=== PATIENT | female | born 1975 | race African-American/Black ===

== ENCOUNTER 2023-09-08 12:40 | Outpatient (CLI) | payer OTHER, SELFPAY ==
[2023-09-08 19:52] LABS: Alanine Aminotransferase 16 U/L (6-35); Albumin Level 4.5 g/dL (3.5-5.1); Alkaline Phosphatase 59 U/L (38-126); Amylase 159 U/L (30-110); Anion Gap 4 mmol/L (4-12); Aspartate Amino Transferase 33 U/L (14-36); Bilirubin,Total 0.4 mg/dL (0.2-1.3); Blood Urea Nitrogen 14 mg/dL (7-17); Calcium 9.6 mg/dL (8.4-10.2); Carbon Dioxide 34 mmol/L (22-30); Chloride 99 mmol/L (98-107); Estimated Glomerular Filt Rate > 60; Glucose 93 mg/dL (65-110); Lipase 151 U/L (23-300); Potassium 4.5 mmol/L (3.4-5.0); Sodium 137 mmol/L (137-145)
== END 2023-09-08 12:41 | disposition home or self-care (01) ==
LOC: ANHGOSHLAB 12:41
PROVIDERS: PCP Family Medicine; Visit Provider Nurse Practitioner Family
DX: R10.11 Right upper quadrant pain (principal); I10 Essential (primary) hypertension; R11.10 Vomiting, unspecified; R19.7 Diarrhea, unspecified; Z90.49 Acquired absence of other specified parts of digestive tract
CPT/HCPCS: 36415; 80053; 82150; 83690

== ENCOUNTER 2023-09-20 12:16 | Emergency (ER) | payer OTHER, SELFPAY ==
--- NOTE | 2023-09-20 12:20 | ED.GENADULT ---
HPI - General Adult General Chief complaint: Upper Respiratory Infection Stated complaint: EYE REDNESS/HEADACHE/CONGESTION Time Seen by Provider: 09/20/23 12:21 Source: patient Mode of arrival: ambulatory Limitations: no limitations History of Present Illness HPI narrative: 48-year-old female patient presents to the [facility] with complaints of a headache and right eye pain. Patient states the right eye pain and headache started to get other yesterday morning when she woke up. Patient states she had a little bit of dry discharge to the right eye upon waking up yesterday. Patient states she does not have history of any type of migraines. Patient states she has had some congestion but states she does have chronic congestion but does feel like maybe the congestion is a little worse. Patient denies any trauma to the eye that she is aware of. Patient does wear glasses, Denies wearing contacts. Patient denies vision changes. Patient denies weakness on 1 side of the body or the other. Patient does have sensitivity to the light currently. Related Data Home Medications Medication Instructions Recorded Confirmed cetirizine 10 mg tablet 10 mg PO DAILY 04/02/23 09/20/23 clotrimazole-betamethasone 1 1 applic topical BID PRN Itching 04/02/23 09/20/23 %-0.05 % topical cream ferrous sulfate 27 mg iron tablet 27 mg PO DAILY 04/02/23 09/20/23 lactobacillus combination no.9 4 4,000 mmu cells PO DAILY 04/02/23 09/20/23 billion cell capsule (Adult 50 Plus Probiotic) metformin 500 mg tablet 500 mg PO TID 04/02/23 09/20/23 omeprazole 20 mg capsule,delayed 20 mg PO DAILY 04/02/23 09/20/23 release Allergies Allergy/AdvReac Type Severity Reaction Status Date / Time exenatide [From Byetta] Allergy Mild Unknown Verified 09/12/23 12:54 Sulfa (Sulfonamide Allergy Mild Unknown Verified 09/12/23 12:54 Antibiotics) sulfamethoxazole Allergy Mild Unknown Verified 09/12/23 12:54 [From Bactrim] trimethoprim [From Bactrim] Allergy Mild Unknown Verified 09/12/23 12:54 semaglutide [From Ozempic] Allergy Other Verified 09/20/23 12:23 Review of Systems Review of Systems: CONSTITUTIONAL: Denies fever, chills, or sweats. EYES: Denies visual changes, Positive right eye redness and pain, positive discharge to right eye yesterday. ENT: Denies rhinorrhea, congestion, sore throat, or otalgia. CARDIOVASCULAR: Denies chest pain, palpitations, or edema. RESPIRATORY: Denies cough or dyspnea. GASTROINTESTINAL: Denies abdominal pain, nausea, vomiting, or diarrhea. GENITOURINARY: Denies dysuria or hematuria. SKIN: Denies rash or itching. MUSCULOSKELETAL: Denies back pain, joint pain, or myalgia. NEUROLOGIC: positive headache, denies numbness, or weakness. PSYCHIATRIC: Denies anxiety or depression. [facility] Past Medical History Medical History Abdominal pain, vomiting, and diarrhea Absence of gallbladder ADD (attention deficit disorder) Anxiety with depression Chronic low back pain Chronic neck pain Constipation Delayed gastric transit Diabetic neuropathy Dyslipidemia Elevated platelet count Environmental allergies Essential (primary) hypertension Fibromyalgia GERD without esophagitis History of colon polyps Pelvic pain RLS (restless legs syndrome) RUQ pain Type 2 diabetes mellitus without complications Vitamin D deficiency Surgical History Surgical History History of carpal tunnel surgery of right wrist (~2017) History of cholecystectomy (~2011) History of foot surgery Right reconstructive surgery - 2011 exploratory right foot and ankle surgery - 2012 History of foot surgery Left reconstructive foot surgery for flat feet - 2017, 2018, 2019, 2020 History of hysterectomy (~2018) History of surgical removal of ganglion cyst (~2013) left wrist Hx of local excision of skin lesion (~2015) right wrist [place]
[2023-09-20 12:28] VITALS: BP 122/73; PULSE 64; RESP 16; TEMP 35.9; O2SAT 99
== END 2023-09-20 13:03 | disposition home or self-care (01) ==
PROVIDERS: Emergency Provider Nurse Practitioner Family; PCP Family Medicine
DX: S05.01XA Injury of conjunctiva and corneal abrasion without foreign body, right eye, initial encounter (principal); X58.XXXA Exposure to other specified factors, initial encounter; E78.5 Hyperlipidemia, unspecified; I10 Essential (primary) hypertension; M79.7 Fibromyalgia; K21.9 Gastro-esophageal reflux disease without esophagitis; G25.81 Restless legs syndrome; E11.40 Type 2 diabetes mellitus with diabetic neuropathy, unspecified; Z79.84 Long term (current) use of oral hypoglycemic drugs; F98.8 Other specified behavioral and emotional disorders with onset usually occurring in childhood and adolescence; F41.8 Other specified anxiety disorders; Z79.82 Long term (current) use of aspirin
CPT/HCPCS: 99213; A9270; G0463

== ENCOUNTER 2023-09-24 08:22 | Day surgery (SDC) | payer OTHER, SELFPAY ==
[2023-09-05 13:37] VITALS: BMI 37.0
--- NOTE | 2023-09-24 09:53 | WPDANESEPPF ---
Anes - Initial Pre Proc Eval Procedure: Operation Date: 09/24/23 11:00 Proposed Procedures p Diagnostic Colonoscopy - Temo Robert MD Date/Time: 09/24/23 09:53 Surgeon: Temo Robert MD Pre Op Diagnosis: History of Polyps Patient Data Age: 48 Gender: F Height: 1.56 m Weight: 86.3 kg Allergies Allergy/AdvReac Type Severity Reaction Status Date / Time exenatide [From Byetta] Allergy Mild Unknown Verified 09/12/23 12:54 Sulfa (Sulfonamide Allergy Mild Unknown Verified 09/12/23 12:54 Antibiotics) sulfamethoxazole Allergy Mild Unknown Verified 09/12/23 12:54 [From Bactrim] trimethoprim [From Bactrim] Allergy Mild Unknown Verified 09/12/23 12:54 semaglutide [From Ozempic] Allergy Other Verified 09/20/23 12:23 Home Medications Medication Instructions Recorded Confirmed Type cetirizine 10 mg tablet 10 mg PO DAILY 04/02/23 09/20/23 History clotrimazole-betamethasone 1 1 applic topical BID PRN Itching 04/02/23 09/20/23 History %-0.05 % topical cream ferrous sulfate 27 mg iron tablet 27 mg PO DAILY 04/02/23 09/20/23 History lactobacillus combination no.9 4 4,000 mmu cells PO DAILY 04/02/23 09/20/23 History billion cell capsule (Adult 50 Plus Probiotic) metformin 500 mg tablet 500 mg PO TID 04/02/23 09/20/23 History omeprazole 20 mg capsule,delayed 20 mg PO DAILY 04/02/23 09/20/23 History release gabapentin 300 mg capsule 300 mg PO QID #360 caps 05/01/23 09/20/23 Rx lisinopril 20 mg tablet 20 mg PO DAILY #90 tabs 06/05/23 09/20/23 Rx metoprolol tartrate 25 mg tablet 25 mg PO BID #180 tabs 08/04/23 09/20/23 Rx aspirin 81 mg chewable tablet 1 tablet PO DAILY #90 tabs 08/07/23 09/20/23 Rx meloxicam 7.5 mg tablet 7.5 mg PO DAILY #90 tabs 08/07/23 09/20/23 Rx nystatin 100,000 unit/gram topical 1 applic topical BID #60 grams 08/07/23 09/20/23 Rx powder sodium,potassium,mag sulfates 17.5 See Rx Instructions PO .COMPLEX 09/05/23 09/20/23 Rx gram-3.13 gram-1.6 gram oral soln #354 mL (Suprep Bowel Prep Kit) escitalopram oxalate 10 mg tablet 10 mg PO DAILY #30 tabs 09/08/23 09/20/23 Rx (Lexapro) fluticasone propionate 50 2 spray intranasal DAILY #16 grams 09/08/23 09/20/23 Rx mcg/actuation nasal spray,suspension lisdexamfetamine 20 mg capsule 20 mg PO QAM #14 caps 09/08/23 09/20/23 Rx (Vyvanse) atorvastatin 20 mg tablet 20 mg PO QHS #90 tabs 09/09/23 09/20/23 Rx ergocalciferol (vitamin D2) 1,250 1,250 mcg PO WEEKLY #12 caps 09/09/23 09/20/23 Rx mcg (50,000 unit) capsule erythromycin 5 mg/gram (0.5 %) eye 0.5 inch EACH EYE QID 5 days #3.5 09/20/23 Rx ointment grams Patient hx anesthesia problems: none Family hx anesthesia problems: none Results Review: All pre-operative results and documents have been reviewed as part of the pre-operative evaluation. [facility] Past Medical History Medical History Abdominal pain, vomiting, and diarrhea Absence of gallbladder ADD (attention deficit disorder) Anxiety with depression Chronic low back pain Chronic neck pain Constipation Delayed gastric transit Diabetic neuropathy Dyslipidemia Elevated platelet count Environmental allergies Essential (primary) hypertension Fibromyalgia GERD without esophagitis History of colon polyps Pelvic pain RLS (restless legs syndrome) RUQ pain Type 2 diabetes mellitus without complications Vitamin D deficiency Surgical History Surgical History History of carpal tunnel surgery of right wrist (~2017) History of cholecystectomy (~2011) History of foot surgery Right reconstructive surgery - 2011 exploratory right foot and ankle surgery - 2013 History of foot surgery Left reconstructive foot surgery for flat feet - 2017, 2018, 2019, 2020 History of hysterectomy (~2017) History of surgical removal of ganglion cyst (~2013) left wrist Hx of local excision of skin lesion
[2023-09-24 09:56] VITALS: BP 118/82; PULSE 66; RESP 16; TEMP 36.7; O2SAT 100
[2023-09-24] MEDS: LACTATED RINGERS 1,000 ML 150 ML IV CONT (10:02)
[2023-09-24 10:09] LABS: Glucose Point of Care 102 mg/dl (65-105)
--- NOTE | 2023-09-24 10:39 | PM.HPGS ---
History of Present Illness History of Present Illness Consent: Risks, benefits, and alternatives have been discussed and questions answered. Patient agrees to proceed with procedure. Chief complaint: History of Polyps Narrative: Anisha Melgoza is a 48 year old female presents for colonoscopy. Patient has a history of colon polyps on multiple occasions in the past. Previous colonoscopies were performed elsewhere. Is that her bowel habits are normal. She has vague left lower quadrant discomfort. She has had no bleeding. Her weight remains stable. Family history is non contributory. Review of Systems Review of Systems: All systems reviewed & are unremarkable except as noted in HPI and below PMFSH Past Medical History Medical History (Updated 09/24/23 @ 10:41 by Temo Robert MD) Abdominal pain, vomiting, and diarrhea Absence of gallbladder ADD (attention deficit disorder) Anxiety with depression Chronic low back pain Chronic neck pain Constipation Delayed gastric transit Diabetic neuropathy Dyslipidemia Elevated platelet count Environmental allergies Essential (primary) hypertension Fibromyalgia GERD without esophagitis History of colon polyps Pelvic pain RLS (restless legs syndrome) RUQ pain Type 2 diabetes mellitus without complications Vitamin D deficiency Surgical History Surgical History History of carpal tunnel surgery of right wrist (~2018) History of cholecystectomy (~2011) History of foot surgery Right reconstructive surgery - 2011 exploratory right foot and ankle surgery - 2012 History of foot surgery Left reconstructive foot surgery for flat feet - 2017, 2018, 2019, 2020 History of hysterectomy (~2018) History of surgical removal of ganglion cyst (~2013) left wrist Hx of local excision of skin lesion (~2015) right wrist Social History Social History Smoking status: Never smoker Alcohol intake: current Substance use: never Substance use type: does not use Lack of Transportation: No Lack of Food: Never True Current Housing: I Have Housing Concerned About Future Housing: No Difficulty Paying Gas/Electric Bills: No Difficulty Paying for Meds: No Currently Unemployed: No Education: Associate Degree Difficulty w/ Childcare or Family Care: No Living arrangements: with family Occupation/Education: occupation Gender identity (if verbalized by the patient): Female Sexual Orientation (if Verbalized by the Patient): Straight or Heterosexual Agree to blood products: Yes Meds Home Medications and Allergies Home Medications Medication Instructions Recorded Confirmed Type cetirizine 10 mg tablet 10 mg PO DAILY 04/02/23 09/24/23 History clotrimazole-betamethasone 1 1 applic topical BID PRN Itching 04/02/23 09/24/23 History %-0.05 % topical cream ferrous sulfate 27 mg iron tablet 27 mg PO DAILY 04/02/23 09/24/23 History lactobacillus combination no.9 4 4,000 mmu cells PO DAILY 04/02/23 09/24/23 History billion cell capsule (Adult 50 Plus Probiotic) metformin 500 mg tablet 500 mg PO TID 04/02/23 09/24/23 History omeprazole 20 mg capsule,delayed 20 mg PO DAILY 04/02/23 09/24/23 History release gabapentin 300 mg capsule 300 mg PO QID #360 caps 05/01/23 09/24/23 Rx lisinopril 20 mg tablet 20 mg PO DAILY #90 tabs 06/05/23 09/24/23 Rx metoprolol tartrate 25 mg tablet 25 mg PO BID #180 tabs 08/04/23 09/24/23 Rx aspirin 81 mg chewable tablet 1 tablet PO DAILY #90 tabs 08/07/23 09/24/23 Rx meloxicam 7.5 mg tablet 7.5 mg PO DAILY #90 tabs 08/07/23 09/24/23 Rx nystatin 100,000 unit/gram topical 1 applic topical BID #60 grams 08/07/23 09/24/23 Rx powder escitalopram oxalate 10 mg tablet 10 mg PO DAILY #30 tabs 09/08/23 09/24/23 Rx (Lexapro) fluticasone propionate 50 2 spray intranasal DAILY #16 grams 09/08/23 09/24/23 Rx mcg/actuat
[2023-09-24 11:05] VITALS: BP 117/71; PULSE 65; RESP 14; O2SAT 100
--- NOTE | 2023-09-24 11:12 | WPDANESPN ---
Anes - Prog Note Post-Op Date/Time: 09/24/23 11:12 Cardiovascular status: normal Respiratory status: normal Airway patency: baseline Mental status: baseline Post-Op hydration status: normal Vital Signs: Last Vital Signs Temp 36.7 C 09/24/23 09:56 Pulse 65 09/24/23 11:07 Resp 14 09/24/23 11:07 BP 117/71 09/24/23 11:07 Pulse Ox 100 09/24/23 11:07 O2 Del Method Room Air 09/24/23 11:07 Pain Score (VAS): 0 I/O: Intake & Output 09/23/23 09/24/23 09/24/23 23:59 07:59 15:59 Intake Total 400 Balance 400 09/24/23 10:04 POC Capillary Glucose 102 Patient Feedback: Patient satisfied with anesthetic care.
[2023-09-24 11:15] VITALS: BP 124/74; PULSE 62; RESP 16; O2SAT 100
[2023-09-24 11:25] VITALS: BP 135/81; PULSE 57; RESP 16; O2SAT 100
== END 2023-09-24 11:32 | disposition home or self-care (01) ==
PROVIDERS: PCP Family Medicine; Visit Provider Internal Medicine Gastroenterology
PROC: 0DJD8ZZ Inspection of Lower Intestinal Tract, Via Natural or Artificial Opening Endoscopic (ICD-10-PCS; CPT 45378; principal; 2023-09-24 11:00)
DX: Z86.010 Personal history of colon polyps (principal); K57.30 Diverticulosis of large intestine without perforation or abscess without bleeding; K64.8 Other hemorrhoids
CPT/HCPCS: 45378

== ENCOUNTER 2024-06-29 09:13 | Outpatient (CLI) | payer OTHER, SELFPAY ==
--- OUTSIDE RECORDS SUMMARY | 2024-06-29 09:55 | XMS_ITS | Clinical Summary ---
Author Organization [facility] Address [address] [place] [address] Phone Care Team Providers Care Acute Care Occupational Therapist Name Role Phone Ricardo Cowan MD Primary Care Provider Allergies Active Allergy Reactions Criticality Noted Date Comments Sulfa Antibiotics Hives 09/07/2023 Medications Ozempic, 0.25 or 0.5 MG/DOSE, 2 MG/3ML Solution Pen-injector 0.5 mg by Subcutaneous route once a week. Active DULoxetine (CYMBALTA) [address] Particles Take 60 mg by mouth daily. Active metFORMIN (GLUCOPHAGE) 500 MG Tablet Take 500 mg by mouth 2 times daily (with meals). Active lisinopril (PRINIVIL, ZESTRIL) 20 MG Tablet Take 20 mg by mouth daily. Active gabapentin (NEURONTIN) 600 MG Tablet Take 600 mg by mouth nightly. Active aspirin 81 MG Chewable Tablet Take 81 mg by mouth daily. Active atorvastatin (Lipitor) 20 MG Tablet Take 20 mg by mouth daily. Active Social History Tobacco Use Types Packs/Day Years Used Date Smoking Tobacco: Never Smokeless Tobacco: Never Tobacco Cessation:Counseling Given: Not Answered Alcohol Use Standard Drinks/Week Comments Never 0 (1 standard drink = 0.6 oz pur e alcohol) Comments No Sex and Gender Information Value Date Recorded Sex Assigned at Not on file Legal Sex Female 3:44 PM CDT Gender Identity Not on file Sexual Orientation Not on file Last Filed Vital Signs Vital Sign Reading Time Taken Comments Blood Pressure 139/84 09/07/2023 7:30 PM CDT Pulse 81 09/07/2023 7:34 PM CDT Temperature 36.9 C (98.4 F) 09/07/2023 4:07 PM CDT Respiratory Rate 18 09/07/2023 4:07 PM CDT Oxygen Saturation 100% 09/07/2023 7:34 PM CDT Inhaled Oxygen Concentration - - Weight 86.2 kg (190 lb) 09/07/2023 4:07 PM CDT Height 156.2 cm (5' 1.5 ) 09/07/2023 4:07 PM CDT Body Mass Index 35.32 09/07/2023 4:07 PM CDT Plan of Treatment Health Maintenance Due Date Last Done Comments Hepatitis C Virus (HCV) Screening 1974 Pap Smear 1995 Cervical Cancer Screening (CCS) 2004 HPV/Cotest 2004 Discussion re Starting/Frequency of Mammograms 2014 Mammogram 07/21/2021 07/21/2020 Influenza Immunization (#1) 2023 10/0 07/2018, 12/18/2015 SARS-COV-2 Immunization (3 - season) 2023 06/15/2020, 05/16/2020 Cologuard 2024 Immunochemical Fecal Occult Blood 2024 Pneumococcal Immunization (5 0+ years) (2 of 2 - PCV) 2024 02/10/2019 Zoster Immunization (1 of 2) 2024 Colonoscopy 06/15/2028 06/15/2018 Colorectal Cancer Screening 06/15/2028 Respiratory Syncytial Virus (RSV) Immunization (Adult) (1 - 1-dose 75+ series) 2049 06/15/2018 TdaP Immunization Completed 12/19/2015 Hepatitis B Immunization Completed 017, 12/12/2015, 10/31/2015 Pneumococcal Immunization Combined Discontinued 02/10/2019 Meningococcal Immunization (ACWY) Aged Out No longer eligible based on patient's age to complete this topic Rotavirus Immunization Aged Out No lo nger eligible based on patient's age to complete this topic Insurance [facility] Care Teams Acute Care Occupational Therapist Relationship Specialty Start Date End Date Ricardo Cowan MD [address] [place] [id number] PCP - General Family Medicine 09/07/23
--- OUTSIDE RECORDS SUMMARY | 2024-06-29 09:55 | XMS_ITS | Clinical Summary ---
Author Organization [facility] Address [address] [place] [address] Care Team Providers Care Twine Reeling Machine Operator Name Role Phone Lázaro Maza MD Primary Care Provider Source Comments [facility],non-owned Affiliates and Associated Physician Practices is amultiple site organization consisting of ambulatory clinics and hospital sitesin [place], [place], [place] and [place]. This disclosure is being madepursuant to the Care Everywhere program and may not contain all information available regarding this patient. Last updated 18.[facility] Health Encounters Date Type Department Care Team Description 05/04/2024 3:30 PM AIRCRAFT POWERTRAIN REPAIRER - 05/04/2024 11:59 PM AIRCRAFT POWERTRAIN REPAIRER Hospital Encounter [facility] Imaging Services - [place] [id number] Jose Maxwell, DP Discharge Disposition: Home or Self Care from Last 3 Months Social History Tobacco Use Types Packs/Day Years Used Date Smoking Tobacco: Never Assessed Sex and Gender Information Value Date Recorded Sex Assigned at Not on file Gender Identity Not on file Sexual Orientation Not on file Plan of Treatment Health Maintenance Due Date Last Done Comments COLOGUARD (AGES 45-75) - COLON CA SCREENING 1974 COLON MONITORING 1974 COLONOSCOPY - COLON CA SCREENING 1974 CT COLONOGRAPHY - COLON CA SCREENING 1974 Colorectal Cancer Screening 1974 FIT - COLON CA SCREENING 1974 FLEX SIG - COLON CA SCREENING 1974 LIPID TESTING 1974 PAP SMEAR 1974 HIV SCREENING 1989 HEPATITIS C SCREENING 05/12/1992 DTAP/TDAP/TD VACCINES (1 - Tdap) 1993 HEPATITIS B VACCINE (1 of 3 - 19+ 3-dose series) 1993 COVID-19 VACCINE (3 - 2023- season) 2023 06/15/2020, 05/16/2020 INFLUENZA VACCINE (#1) 2023 01/22/2019, 2015 DEPRESSION SCREENING 04/21/2024 PNEUMOCOCCAL VACCINE 50+ (1 of 1 - PCV) 2024 ZOSTER VACCINE (1 of 2) 2024 MAMMOGRAM 03/15/2026 03/15/2024, 02/20, 07/21/2020, Additional history exists HIB VACCINE Aged Out No longer eligi ble based on patient's age to complete this topic HPV VACCINE Aged Out No longer eligi ble based on patient's age to complete this topic MENINGOCOCCAL (Group B) VACCINE Aged Out No longer eligible based on patient's age to complete this topic MENINGOCOCCAL VACCINE Aged Out No dharmesh aida eligible based on patient's age to complete this topic Procedures Procedure Name Priority Date/Time Associated Diagnosis Comments MRI ANKLE RIGHT WO CONTRAST Routine 05/04/2024 4:25 PM AIRCRAFT POWERTRAIN REPAIRER Posterior tibial tendinitis of right leg from Last 3 Months Results * MRI Ankle Right Wo Contrast (05/04/2024 4:25 PM AIRCRAFT POWERTRAIN REPAIRER) Anatomical Region Laterality Modality Ankle / Foot Magnetic Resonan ce 05/04/2024 5:31 PM AIRCRAFT POWERTRAIN REPAIRER Narrative 05/04/2024 5:38 PM AIRCRAFT POWERTRAIN REPAIRER PROCEDURE: MRI ANKLE RIGHT WO CONTRAST DATE/TIME OF EXAM: 05/04/2024 4:52 PM CLINICAL INFORMATION: None relevant/not provided if blank. Indication: M76.821: Posterior tibial tendinitis, right leg Additional History: Previous surgery. COMPARISON: None. TECHNIQUE: MRI of the right ankle was performed without contrast. FINDINGS: Examination of the bony structures reveals considerable metallic artifact within the mid to posterior calcaneus. Remaining bony structures demonstrate normal marrow signal intensity. No fracture, acute appearing bone marrow edema or bone marrow replacement process is identified. No discrete osteochondral defect is identified at the talar dome. There is a small tibiotalar joint effusion. There is mild chronic thickening of the distal portion of the posterior tibial tendon. Mildly increased fluid posterior tibial tendon sheath. No acute appearing tear is identified. There is loss of definition of the flexor digitorum longus tendon without acute tear or acute edema. No other discrete tendon abnormality identified medially. Peroneal tendons appear intact bilaterally. Achilles tendon is grossly intact as is the plantar fascia. No ligamentous tear is identified. No acute appearing superficial or deep soft tissue edema. No abnormality identified within the sinus tarsi. CONCLUSION: Chronic appearing thickening distal posterior tibial tendon with a small amount of fluid within the tendon sheath. No focal or acute tear identified. Chronic appearing loss of definition flexor digitorum longus tendon, likewise without acute appearing tear or edema. No other tendon tear identified. No discrete ligamentous tear appreciated. Small tibiotalar joint effusion. No fracture, bone marrow edema or osteochondral defect identified. Metallic artifact calcaneus. > Interpreting Provider: Earl Reddy MD on 05/04/2024 5:38 PM Procedure Note Earl Reddy MD - 05/04/2024 PROCEDURE: MRI ANKLE RIGHT WO CONTRAST DATE/TIME OF EXAM: 05/04/2024 4:52 PM CLINICAL INFORMATION: None relevant/not provided if blank. Indication: M76.821: Posterior tibial tendinitis, right leg Additional History: Previous surgery. COMPARISON: None. TECHNIQUE: MRI of the right ankle was performed without contrast. FINDINGS: Examination of the bony structures reveals considerable metallicartifact within the mid to posterior calcaneus. Remaining bony structures demonstrate normal marrow signal intensity. No fracture, acute appearing bone marrow edema or bone marrow replacement process is identified. No discrete osteochondral defect is identified at the talar dome. There brock small tibiotalar joint effusion. There is mild chronic thickening of the distal portion of the posterior tibial tendon. Mildly increased fluid posterior tibial tendon sheath. No acute appearing tear is identified. There is loss of definition of the flexor digitorum longus tendon without acute tear or acute edema. Noother discrete tendon abnormality identified medially. Peroneal tendons appear intact bilaterally. Achilles tendon is grossly intact as is the plantar fascia. No ligamentous tear is identified. No acute appearing superficial ordeep soft tissue edema. No abnormality identified within the sinus tarsi. CONCLUSION: Chronic appearing thickening distal posterior tibial tendon with a small amount of fluid within the tendon sheath. No focal or acute tear identified. Chronic appearing loss of definition flexor digitorum longus tendon, likewise without acute appearing tear or edema. No other tendon tear identified. No discrete ligamentous tearappreciated. Small tibiotalar joint effusion. No fracture, bone marrow edema or osteochondral defect identified. Metallic artifact calcaneus. > Interpreting Provider: Earl Reddy MD on 05/04/2024 5:38 PM Jose Dhillon [place] [facility] MR ORDERABLES from Last 3 Months Care Teams Twine Reeling Machine Operator Relationship Specialty Start Date End Date Lázaro Maza MD [address] [id number] PCP - General 06/12/20
--- OUTSIDE RECORDS SUMMARY | 2024-06-29 09:55 | XMS_ITS | Referral Summary ---
Author Organization [facility] Address [address] [place] [address] Care Team Providers Care Patent Legal Assistant Name Role Phone Lázaro Maza MD Primary Care Provider Source Comments [facility] Affiliates and Associated Physician Practices is amultiple site organization consisting of ambulatory clinics and hospital sitesin [place], [place], [place] and [place]. This disclosure is being madepursuant to the Care Everywhere program and may not contain all information available regarding this patient. Last updated 18.[facility] Encounters Date Type Department Care Team Description 05/04/2024 3:30 PM DIGITAL FORENSIC ANALYST - 05/04/2024 11:59 PM DIGITAL FORENSIC ANALYST Hospital Encounter [facility] Imaging Services - MRI [address] [place] [id number] Jose Maxwell, DP Discharge Disposition: Home or Self Care from Last 3 Months Social History Tobacco Use Types Packs/Day Years Used Date Smoking Tobacco: Never Assessed Sex and Gender Information Value Date Recorded Sex Assigned at Not on file Gender Identity Not on file Sexual Orientation Not on file Plan of Treatment Not on file Procedures Procedure Name Priority Date/Time Associated Diagnosis Comments MRI ANKLE RIGHT WO CONTRAST Routine 05/04/2024 4:25 PM DIGITAL FORENSIC ANALYST Posterior tibial tendinitis of right leg from Last 3 Months Results * MRI Ankle Right Wo Contrast (05/04/2024 4:25 PM DIGITAL FORENSIC ANALYST) Anatomical Region Laterality Modality Ankle / Foot Magnetic Resonan ce 05/04/2024 5:31 PM DIGITAL FORENSIC ANALYST Narrative 05/04/2024 5:38 PM DIGITAL FORENSIC ANALYST PROCEDURE: MRI ANKLE RIGHT WO CONTRAST DATE/TIME [...] Reddy MD on 05/04/2024 5:38 PM Jose M Alissa DPM MR ORDERABLES from Last 3 Months Care Teams Patent Legal Assistant Relationship Specialty Start Date End Date Lázaro Maza MD [address] [id number] PCP - General 06/12/20
--- OUTSIDE RECORDS SUMMARY | 2024-06-29 09:55 | XMS_ITS | Clinical Summary ---
Author Organization [facility] Address [address] [place] [address] Care Team Providers Care Pay Agent Name Role Phone Unavailable Primary Care Provider Unavailabl e Encounters Date Type Department Care Team Description 06/26/2024 External Device Data [facility] ABSTRACTION Provider, Abstract 06/25/2024 External Device Data [facility] Provider, Abstract 06/23/2024 External Device Data [facility] Provider, Abstract 06/09/2024 External Device Data [facility] Provider, Abstract 06/01/2024 External Device Data [facility] Provider, Abstract 05/19/2024 External Device Data [facility] Provider, Abstract 05/13/2024 External Device Data [facility] Provider, Abstract from Last 3 Months Social History Tobacco Use Types Packs/Day Years Used Date Smoking Tobacco: Never Assessed Comments Unknown Sex and Gender Information Value Date Recorded Sex Assigned at Not on file Legal Sex Female 4:55 PM CDT Gender Identity Not on file Sexual Orientation Not on file Plan of Treatment Health Maintenance Due Date Last Done Comments Pre-Diabetes and Diabetes Screening 1974 DTAP/TDAP/TD VACCINES (1 - Tdap) 1993 HEPATITIS B VACCINES (1 of 3 - 19+ 3-dose series) 1993 CERVICAL CANCER SCREENING 2004 COLORECTAL SCREENING 2019 Colorectal Cancer Screening 2019 FIT-DNA Q 3 years 2019 FIT/FOBT Q 1 year 2019 Flex Sig/CT Colonography Q 5 years 2019 INFLUENZA VACCINE (#1) 2023 ZOSTER VACCINE (1 of 2) 2024 BREAST CANCER SCREENING 03/15/2025 03/15/2024 PNEUMOCOCCAL VACCINE 0-49 YEARS Aged Out No longer eligible based on patient's age to complete this topic Procedures Procedure Name Priority Date/Time Associated Diagnosis Comments MAMMO 3D BISHNU SCREEN BILAT W OR WO CAD Routine 03/15/2024 7:38 AM DIGITAL ASSET COORDINATOR Encounter for screening mammogram for malignant neoplasm of breast from Last 3 Months or Most Recently Relevant to Health Maintenance Results * MAMMO 3D BISHNU SCREEN BILAT W OR WO CAD (03/15/2024 7:38 AM DIGITAL ASSET COORDINATOR) Anatomical Region Laterality Modality Breast Bilateral Mammography 03/15/2024 7:38 AM DIGITAL ASSET COORDINATOR Addenda Addendum by Aba Marshall MD on 03/16/2024 7:51 AM DIGITAL ASSET COORDINATOR CC and MLO views are obtained. Impressions 03/15/2024 8:24 AM DIGITAL ASSET COORDINATOR IMPRESSION: NO RADIOGRAPHIC EVIDENCE OF MALIGNANCY. BI-RADS CATEGORY 1-Negative. Narrative 03/15/2024 8:24 AM DIGITAL ASSET COORDINATOR Computer Assisted Detection (CAD) used during interpretation. INDICATION: Screening. Standard views of both breasts are obtained. 3D tomosynthesis was also utilized. Compared to 07/02/22. There has been no change. There is no abnormal mass or grouped microcalcifications present to suggest malignant disease. Breast Density: Scattered areas of fibroglandular density. Procedure Note Aba Marshall MD - 03/15/2024 Computer Assisted Detection (CAD) used during interpretation. INDICATION: Screening. Standard views of both breasts are obtained. 3D tomosynthesis was also utilized. Compared to 07/02/22. There has been no change. There is no abnormal mass or grouped microcalcifications present to suggest malignant disease. Breast Density: Scattered areas of fibroglandular density. IMPRESSION: NO RADIOGRAPHIC EVIDENCE OF MALIGNANCY. BI-RADS CATEGORY 1-Negative. Ricardo Cowan MD MAMMO ORDERABLES Edite d Result - Final from Last 3 Months or Most Recently Relevant to Health Maintenance Insurance [facility] [id number]
--- OUTSIDE RECORDS SUMMARY | 2024-06-29 09:55 | XMS_ITS | Clinical Summary ---
Author Organization [facility] Address [address] [place] [address] Care Team Providers Care Apprentice Name Role Phone Brian Lyle MD Unavailable [phone] Ricardo Cowan MD Primary Care Provider Allergies Active Allergy Reactions Criticality Noted Date Comments Aspirin Fatigue,Stomach upset Low 09/25/2021 Sulfamethoxazole-Trimeth oprim Rash Medium 09/25/2021 Exenatide Ibuprofen Fatigue,Other (See comments),Stomach upset Low 09/25/2021 Levofloxacin Other (See comments) Low 06/15/2018 Yeast infection Sulfanilamide Medications atorvastatin (LIPITOR) 20 mg tablet Take 20 mg by mouth nightly 07/26/[address] (CYMBALTA) 60 mg capsule Take 60 mg by mouth daily 09/08/2020 Active ergocalciferol (VITAMIN D) 50,000 unit capsule Take 50,000 Units by mouth once a week 07/04/2020 Active ferrous sulfate 325 mg (65 mg of elemental iron) tablet Take 325 mg by mouth daily 12/28/2019 Active fluticasone propionate (FLONASE) 50 mcg/actuation nasal spray UES 2 SPRAYS IN EACH NOSTRIL DAILY 08/07/2021 Active gabapentin (NEURONTIN) 600 mg tablet Take 600 mg by mouth nightly at bedtime. 09/18/2021 Active glimepiride (AMARYL) 2 mg tablet Take 2 mg by mouth every 12 (twelve) hours 08/05/2021 Active ipratropium (ATROVENT) 42 mcg (0.06 %) nasal spray USE 2 SPRAYS IN EACH NOSTRIL EVERY 12 HOURS 08/07/2021 Active lisinopril-hydr oCHLOROthiazide (ZESTORETIC) 10-12.5 mg per tablet 08/29/2021 Active metFORMIN (GLUCOPHAGE) 500 mg tablet 08/29/2021 Activ e modafiniL (PROVIGIL) 200 mg tablet Take 200 mg by mouth 2 (two) times a day 08/05/2021 Active polyethylene glycol (Purelax) 17 gram/dose powder Take 17 g by mouth daily as needed 08/19/[address] (PROTONIX) 40 mg EC tablet Take 40 mg by mouth daily 11/17/2018 Active tiZANidine (ZANAFLEX) 2 mg tablet 09/21/2021 Active traMADoL (ULTRAM) 50 mg tablet Take 50 mg by mouth 2 (two) times a day 09/13/2021 Active traZODone (DESYREL) 50 mg tablet Take 50 mg by mouth nightly 08/01/2021 Active aspirin 81 mg chewable tablet CHEW AND SWALLOW 1 TABLET BY MOUTH EVERY DAY 08/13/2021 Active Active Problems No known active problems Surgical History Surgery Date Site/Laterality Comments OTHER SURGICAL HISTORY tubal reversal OTHER SURGICAL HISTORY fibroids removed TUBAL LIGATION Bilateral tubal ligation CHOLECYSTECTOMY Cholecystectomy OTHER SURGICAL HISTORY D&C TUBAL LIGATION HYSTERECTOMY Medical History Medical History Date Comments Hx Other Medical anemic Hypertension Hypertension Rectal pain Chronic constipation Family History Medical History Relation Name Comments Diabetes Father Hypertension Father Prostate cancer Father Arthritis Mother Hypertension Mother Diabetes Paternal Grandfather Diabete s mellitus; Relation Name Status Comments Father Mother Paternal Grandfather Social History Tobacco Use Types Packs/Day Years Used Date Smoking Tobacco: Never Alcohol Use Standard Drinks/Week Comments No 0 (1 standard drink = 0.6 oz pur e alcohol) Personal Safety Answer Date Recorded Have you ever been in or are you currently in a harmful physical or emotional relationship or is someone making you feel afraid or unsafe? 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 Gender Identity Female 04/02/2023 6:30 AM BICYCLE II ASSEMBLER Sexual Orientation Straight 04/02/2023 6: 30 AM BICYCLE II ASSEMBLER Obstetrics History Last Filed Vital Signs Vital Sign Reading Time Taken Comments Blood Pressure 119/75 09/07/2023 12:18 PM CDT Pulse 72 09/07/2023 12:18 PM CDT Temperature 36.6 C (97.9 F) 09/07/2023 12:18 PM CDT Respiratory Rate 16 09/07/2023 12:18 PM CDT Oxygen Saturation 100% 09/07/2023 12:18 PM CDT Inhaled Oxygen Concentration - - Weight 86.2 kg (190 lb) 09/07/2023 12:18 PM CDT Height 156.2 cm (5' 1.5 ) 09/07/2023 12:18 PM CD T Body Mass Index 35.32 09/07/2023 12:18 PM CDT Plan of Treatment Health Maintenance Due Date Last Done Comments Breast Cancer Screening-Mammogram 1974 Colon Cancer Screening-Colonoscopy 1974 Depression Screening 1974 Hepatitis C Screening 1974 Regular Well Visit/Exam 18-64 1992 Pneumococcal vaccine <65 (2 of 2 - PCV) 02/11/2020 02/10/2019 Covid-19 Vaccine (4 - 2023-2 5 season) 2023 03/01/2021, 06/15/2020, 05/16/2020 Influenza Vaccine (#1) 2023 , 02/24/2021, 01/22/2019, Additional history exists Zoster Vaccine (1 of 2) 2024 DTaP/Tdap/Td Vaccine (3 - Td or Tdap) 12/18/2025 12/19/2015, 01/02/2007 Hepatitis B Screening Completed 06/10/2016 , 12/12/2015, 10/31/2015 Insurance [facility] [place] CHOICE PLUS [facility] CHOICE PLUS Care Teams Apprentice Relationship Specialty Start Date End Date Ricardo Cowan MD [facility] [facility] [place] [address] PCP - General Family Practice 09/07/23 Biran Lyle MD [address] [place] [id number] Internal Medicine 03/30/23
--- OUTSIDE RECORDS SUMMARY | 2024-06-29 09:55 | XMS_ITS | Referral Summary ---
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 CHOICE PLUS [facility] HMO/PPO Address: [address] [place] [address] [facility] CHOICE PLUS [facility] HMO/PPO Address: [address] [address] [place] [address] Care Teams Mathematical Engineering Technician Relationship Specialty Start Date End Date Ricardo Cowan MD [address] [facility] [address] [address] PCP - General Family Practice 09/07/23 Brian Lyle MD [address] [place] [id number] Internal Medicine 03/30/23
--- OUTSIDE RECORDS SUMMARY | 2024-06-29 09:55 | XMS_ITS | Patient Health Summary ---
Author Organization [facility] Address [address] [facility] [place] [address] Care Team Providers Care Correctional Facility Psychiatrist Name Role Phone Lázaro Maza MD Primary Care Provider Note from [facility],non-owned Affiliates and Associated Physician Practices is amultiple site organization consisting of ambulatory clinics and hospital sitesin [place], [place], [place] and [place]. This disclosure is being madepursuant to the Care Everywhere program and may not contain all information available regarding this patient. Last updated 18.[facility] Social History Tobacco Use Types Packs/Day Years Used Date Smoking Tobacco: Never Assessed Sex and Gender Information Value Date Recorded Sex Assigned at Not on file Gender Identity Not on file Sexual Orientation Not on file Procedures * MRI ANKLE RIGHT WO CONTRAST(Performed 05/04/2024) Performed for Posterior tibial tendinitis of right leg Results * MRI Ankle Right Wo Contrast (05/04/2024 4:25 PM SHRUB GROWER) Anatomical Region Laterality Modality Ankle / Foot Magnetic Resonan ce 05/04/2024 5:31 PM SHRUB GROWER Narrative 05/04/2024 5:38 PM SHRUB GROWER PROCEDURE: MRI ANKLE RIGHT WO CONTRAST DATE/TIME [...] Reddy MD on 05/04/2024 5:38 PM Jose ARAUJOM MR ORDERABLES Care Teams Correction[facility] Facility Psychiatrist Relationship Specialty Start Date End Date Lázaro Maza MD [address] [place] [id number] PCP - General 06/12/20
--- OUTSIDE RECORDS SUMMARY | 2024-06-29 09:55 | XMS_ITS | Encounter Summary ---
Author Organization [facility] Address [address] [place] [address] Care Team Providers Care Brim Buster Name Role Phone Unavailable Primary Care Provider Unavailabl e Encounter Details Date Type Department Care Team (Late st Contact Info) Description 06/26/2024 External Device Data [facility] ABSTRACTION Provider, Abstract NO ADDRESS ON FILE Social History Tobacco Use Types Packs/Day Years Used Date Smoking Tobacco: Never Assessed Comments Unknown Sex and Gender Information Value Date Recorded Sex Assigned at Not on file Legal Sex Female 4:55 PM CDT Gender Identity Not on file Sexual Orientation Not on file documented as of this encounter Plan of Treatment Not on file documented as of this encounter Visit Diagnoses Not on filedocumented in this encounter
[2024-06-29 13:30] LABS: Basophils Percent Auto 1.1 % (0.2-1.2); Eosinophils Absolute Auto 0.1 K/mm3 (0-0.3); Eosinophils Percent Auto 1.4 % (0-4.4); Hematocrit 35.8 % (37.0-47.0); Lymphocytes Absolute Auto 1.95 K/mm3 (0.9-3.2); Lymphocytes Percent Auto 53.7 % (18.3-44.2); Mean Corpuscular HGB Conc 30.7 g/dl (32-36); Mean Corpuscular Hemoglobin 27.6 pg (26-34); Mean Corpuscular Volume 89.9 fl (80-100); Mean Platelet Volume 10.8 fl (7.4-10.4); Monocytes Absolute Auto 0.4 K/mm3 (0.1-0.6); Neutrophils Absolute Auto 1.2 K/mm3 (1.3-6.7); Neutrophils Percent Auto 32.8 % (45.5-73.1); Platelet Count Result 308 k/mm3 (150-375); Red Blood Count 3.98 M/mm3 (4.2-5.4); White Blood Count 3.6 K/mm3 (4.5-10.0)
[2024-06-29 13:43] LABS: Alanine Aminotransferase 17 U/L (6-35); Albumin Level 4.4 g/dL (3.5-5.1); Alkaline Phosphatase 53 U/L (38-126); Amylase 118 U/L (30-110); Anion Gap 9 mmol/L (4-12); Aspartate Amino Transferase 44 U/L (14-36); Bilirubin,Total 0.5 mg/dL (0.2-1.3); Blood Urea Nitrogen 14 mg/dL (7-17); Calcium 9.4 mg/dL (8.4-10.2); Carbon Dioxide 30 mmol/L (22-30); Chloride 100 mmol/L (98-107); Cholesterol 129 mg/dL (0-200); Estimated Glomerular Filt Rate > 60; Glucose 132 mg/dL (65-110); HDL Direct 51 mg/dL; Potassium 4.4 mmol/L (3.4-5.0); Sodium 139 mmol/L (137-145); Triglycerides 78 mg/dL (<150)
[2024-06-29 13:53] LABS: LDL Cholesterol Direct 46 mg/dL
[2024-06-29 14:46] LABS: Thyroid Stimulating Hormone Reflex 0.673 uIU/mL (0.465-4.68)
[2024-06-29 14:57] LABS: Microalbumin Urine Random < 6.0 mg/L (0-16.7)
[2024-06-29 17:23] LABS: Hemoglobin A1C 6.7 % (<5.7)
[2024-06-29 23:45] LABS: MALB Creatinine Ratio < 54.5 mg/g (0-30)
== END 2024-06-29 09:14 | disposition home or self-care (01) ==
LOC: ANHGOSHLAB 09:14
PROVIDERS: PCP Family Medicine; Visit Provider Nurse Practitioner Family
DX: E03.9 Hypothyroidism, unspecified (principal); E11.9 Type 2 diabetes mellitus without complications; I10 Essential (primary) hypertension; E78.5 Hyperlipidemia, unspecified; Z78.0 Asymptomatic menopausal state; Z87.19 Personal history of other diseases of the digestive system
CPT/HCPCS: 36415; 80053; 80061; 82043; 82150; 83036; 84443; 85025